=== PATIENT | male | born 1990 | race African-American/Black ===

== ENCOUNTER 2025-08-07 18:27 | Emergency (ER) | payer OTHER ==
[~2025-08-07] VITALS: Ht 177.8 cm; Wt 90.7 kg
[2025-08-07 19:13] LABS: PLATELET COUNT (AUTO) 315 K/uL (179-408); RED BLOOD CELL COUNT(AUTO) 4.78 MIL/uL (3.63-4.92); RED CELL DISTRIBUTION WIDTH 15.5 % (12.3-17.7); WHITE BLOOD COUNT (AUTO) 18.0 K/uL (3.8-11.8)
[2025-08-07 19:40] LABS: CREATININE 0.9 mg/dL (0.6-1.3); SODIUM SERUM 135 mmol/L (136-145); UREA NITROGEN, BLOOD 24 mg/dL (7-18)
[2025-08-07 19:45] LABS: ETHANOL < 3 MG/DL (0-10)
[2025-08-07 19:48] LABS: ASPARTATE AMINOTRANSFERASE 21 U/L (15-37); TOTAL PROTEIN, SERUM 8.2 g/dL (6.4-8.2)
[2025-08-07] MEDS: IV NORMAL SALINE 1000 ML BAG IV ONE (20:16)
[2025-08-07 22:30] VITALS: BP 150/90
[2025-08-07 23:34] LABS: PLATELET COUNT (AUTO) 295 K/uL (179-408); RED BLOOD CELL COUNT(AUTO) 4.78 MIL/uL (3.63-4.92); RED CELL DISTRIBUTION WIDTH 15.6 % (12.3-17.7); WHITE BLOOD COUNT (AUTO) 15.8 K/uL (3.8-11.8)
[2025-08-08 00:09] VITALS: BP 139/85; O2SAT 100
== END 2025-08-08 00:17 | disposition home or self-care (01) ==
LOC: EDSEX → ER 18:44
DX: Z00.00 Encounter for general adult medical examination without abnormal findings (principal); E11.9 Type 2 diabetes mellitus without complications; Z88.6 Allergy status to analgesic agent
CPT/HCPCS: 80076; 80048; 85025 ×2; 84484; 36415; 71045; 99284; 96360; 80320; J7040; A4606; A4663; G0480

== ENCOUNTER 2025-08-08 07:38 | Emergency (ER) | payer OTHER ==
[~2025-08-08] VITALS: Ht 170.2 cm; Wt 86.2 kg
[2025-08-08 08:07] LABS: PLATELET COUNT (AUTO) 289 K/uL (152-348); RED BLOOD CELL COUNT(AUTO) 4.53 MIL/uL (4.06-5.63); RED CELL DISTRIBUTION WIDTH 15.2 % (12.1-16.2); WHITE BLOOD COUNT (AUTO) 15.3 K/uL (3.6-10.2)
[2025-08-08 08:33] LABS: ASPARTATE AMINOTRANSFERASE 15 U/L (15-37); CREATININE 0.8 mg/dL (0.6-1.3); SODIUM SERUM 137 mmol/L (136-145); TOTAL PROTEIN, SERUM 7.6 g/dL (6.4-8.2); UREA NITROGEN, BLOOD 16 mg/dL (7-18)
[2025-08-08 08:36] LABS: ETHANOL < 3 MG/DL (0-10)
[2025-08-08 10:45] VITALS: BP 123/91
[2025-08-08 13:06] VITALS: BP 123/91; O2SAT 99
== END 2025-08-08 13:07 | disposition home or self-care (01) ==
LOC: EDSEX 07:38 → ER 07:38
DX: R07.89 Other chest pain (principal); F15.10 Other stimulant abuse, uncomplicated; E11.9 Type 2 diabetes mellitus without complications; Z88.6 Allergy status to analgesic agent
CPT/HCPCS: 36415; 71045; 84484; 85025; 85730; A4606; A4663; G0480

== ENCOUNTER 2025-08-09 07:01 | Emergency (ER) | payer OTHER ==
[~2025-08-09] VITALS: Ht 177.8 cm; Wt 113.4 kg
[2025-08-09 09:00] VITALS: BP 124/77
[2025-08-09 09:55] VITALS: BP 122/74; O2SAT 95
== END 2025-08-09 09:47 | disposition home or self-care (01) ==
LOC: ER 07:01
DX: M79.673 Pain in unspecified foot (principal); F15.10 Other stimulant abuse, uncomplicated; E11.9 Type 2 diabetes mellitus without complications; J45.909 Unspecified asthma, uncomplicated; Z88.6 Allergy status to analgesic agent; Z88.7 Allergy status to serum and vaccine
CPT/HCPCS: A4606; A4663